=== PATIENT | male | born 1975 | race Native Hawaiian/Other Pacific Islander ===

== ENCOUNTER 2017-01-19 16:47 | Observation (INO) | payer OTHER ==
[2017-01-19 16:47] VITALS: BMI 28.1
[2017-01-19] MEDS ORDERED: Nitroglycerin 2% Ointment Foilpak UD TOP STA (17:23)
--- NOTE | 2017-01-19 17:47 | ED PDOC ---
HPI: Chest Pain History Per: Patient History/Exam Limitations: no limitations <Collins Rodríguez - Last Filed: 01/19/17 19:12> <Radha Pierre - Last Filed: 01/19/17 20:45> Chief Complaint (Nursing): Chest Pain Additional Complaint(s): 41 y/o M with a PMHx of HTN and DM 2 c/o chest pain that began last night. Pain is described as sharp, pressure-like, left-sided, intermittent, radiates to left arm and left back. Pt reports pain has been constant since 2 hours ago. Pt was diagnosed with HTN and DM 2 10 months ago. Pt denies fever, SOB, abdominal pain, ill contacts, N/V, rash or peripheral edema. Allergies: Penicillins Medications: Lisinopril and Metformin. PMHx: DM 2 and HTN PSHx: denied. FHx: Father had an open-heart surgery at age 50. SHx: No smoking, alcohol or rec. drugs. (Collins Rodríguez) Supervising Attending Note <Collins Rodríguez - Last Filed: 01/19/17 19:12> - Supervising Attending Note The Documented history was done by the: Physician Biomedical Engineer, Attending Physician The documented physical exam was done by the: Physician Biomedical Engineer, Attending Physician - Attestation: I have personally seen and examined this patient.: Yes I have fully participated in the care of the patient.: Yes I have reviewed all pertinent clinical information: Yes <Radha Pierre - Last Filed: 01/19/17 20:45> - Notes: Notes:: Anginal chest pain with h/o cardiac risk factors. Unremarkable physical exam. Needs hospitalization for serial troponin, rule out ACS. (Radha Pierre) Past Medical History - Medical History PMH: Diabetes, HTN - Surgical History Surgical History: No Surg Hx - Family History Family History: States: [place] - Social History Current smoker - smoking cessation education provided: No Ex-Smoker (has not smoked in the last 12 months): No Alcohol: None Drugs: Denies <Collins Rodríguez - Last Filed: 01/19/17 19:12> <Radha Pierre - Last Filed: 01/19/17 20:45> Vital Signs: Last Vital Signs Temp 98.0 F 01/19/17 18:16 Pulse 78 01/19/17 18:22 Resp 18 01/19/17 18:16 BP 134/80 01/19/17 18:22 Pulse Ox 99 01/19/17 19:13 - Home Medications Home Medications: Ambulatory Orders Medication Instructions Recorded Fluticasone Propionate [Flonase] 2 spr ROBERT DAILY #1 bottle 08/02/15 Lisinopril [Zestril] 5 mg PO DAILY 02/25/16 metFORMIN [glucOPHAGE] 500 mg PO DAILY 02/25/16 oxyCODONE/Acetaminophen [Percocet 5 - 325 mg PO Q4 PRN 02/25/16 5/325 mg Tab] - Allergies Allergies/Adverse Reactions: Allergies Allergy/AdvReac Type Severity Reaction Status Date / Time Penicillins Allergy unknown Verified 01/19/17 16:53 JJ Risk Score for UA/NSTEMI - JJ Risk Score Age > 64: NO 3 or more CAD Risk Factors: YES Known CAD (Stenosis greater than 50%): NO Aspirin use in past 7 days: NO Severe Angina: NO EKG ST changes greater than 0.5mm: NO JJ Score: 1 Risk %: 5% <Collins Rodríguez - Last Filed: 01/19/17 19:12> Curb-65 Severity Score - CURB-65 Severity Score Confusion: No Bun >19mg/dl (>7mmol/L): No Respiratory Rate greater than/equal to 30: No Systolic BP <90 or Diastolic BP less than/equal 60mmHg: No Age >64: No Curb-65 Score: 0 Percentage 30-day mortality: 0.6% <Collins Rodríguez - Last Filed: 01/19/17 19:12> Wells Criteria for PE - Wells Criteria for Pulmonary Embolism Clinical Signs and Symptoms of DVT: No P.E is #1 Diagnosis, or Equally Likely: No Heart Rate >100: No Immobilization at least 3 days;Surgery previous 4 weeks: No Previous, objectively diagnosed PE or DVT: No Hemoptysis: No Malignancy w/treatment within 6 months, or palliative: No Total Score: 0 <Collins Rodríguez - Last Filed: 01/19/17 19:12> Review of Systems Constitutional: Negative for: Fever, Chills ENT: Negative for: Nose Congestion, Throat Pain Cardiovascular: Positive for: Chest Pain. Negative for: Palpitations, Orthopnea Respiratory: Negative for: Cough, Shortness of Breath Gastrointestinal: Negative for: Nausea, Vomiting, Abdominal Pain Neurological: Negative for: Weakness, Numbness, Confusion <Collins Rodríguez - Last Filed: 01/19/17 19:12> Physical Exam - Reviewed Vital Signs Reviewed: Yes - Physical Exam Appears: Positive for: Well, Uncomfortable Head Exam: Positive for: ATRAUMATIC, NORMAL INSPECTION Skin: Positive for: Normal Color, Warm Eye Exam: Positive for: EOMI, PERRL ENT: Positive for: Normal ENT Inspection Neck: Positive for: Normal, Supple Cardiovascular/Chest: Positive for: Regular Rate, Rhythm Respiratory: Positive for: Normal Breath Sounds Gastrointestinal/Abdominal: Positive for: Normal Exam. Negative for: Bowel Sounds, Soft, Tenderness Neurologic/Psych: Positive for: Alert, Oriented <Collins Rodríguez - Last Filed: 01/19/17 19:12> - Laboratory Results Result Diagrams: 01/19/17 18:18 01/19/17 18:18 - ECG O2 Sat by Pulse Oximetry: 99 <Collins Rodríguez - Last Filed: 01/19/17 19:12> - Laboratory Results Result Diagrams: 01/19/17 18:18 01/19/17 18:18 <Radha Pierre - Last Filed: 01/19/17 20:45> Medical Decision Making <Collins Rodríguez - Last Filed: 01/19/17 19:12> <Radha Pierre - Last Filed: 01/19/17 20:45> Medical Decision Makin41 y/o M with a PMHx of DM 2 and HTN, father had open heart surgery at age 50, presenting with chest pain. Plan: --EKG --Chest X ray --CBC --CMP --Troponin --PT --PTT --Magnesium serum level --Phosphorus serum level --Urine drug screen --Urinalysis --Aspirin --Nitroglycerin 19:05 Pt reports mild improvement. Bloodwork unremarkable. Will transfer of care to Dr Pierre. (Collins Rodríguez) Disposition - Patient ED Disposition Is Patient to be Admitted: Transfer of Care - Disposition Disposition: Transfer of Care Disposition Time: 19:13 <Collins Rodríguez - Last Filed: 01/19/17 19:12> Discussed With DrDavide: Mirtha Davenport Doctor Will See Patient In The: ED Counseled Patient/Family Regarding: Studies Performed, Diagnosis - Pt Status Changed To: Hospital Disposition Of: Observation - POA Present On Arrival: None <Radha Pierre - Last Filed: 01/19/17 20:45> - Clinical Impression Clinical Impression: Chest pain - Disposition Condition: FAIR Forms: [facility] (Mauritanian)
[2017-01-19] MEDS ORDERED: Nitroglycerin 2% Ointment Foilpak UD TOP ONE (18:22)
[2017-01-19 18:24] LABS: BASO # 0.1 K/uL (0.0-0.2); BASO % 0.6 % (0.0-2.0); EOS # 0.2 K/uL (0.0-0.7); EOS % 2.9 % (0.0-4.0); HEMATOCRIT 41.2 % (35.0-51.0); LYMPH # 2.4 K/uL (1.0-4.3); LYMPH % 28.5 % (20.0-40.0); MEAN CELL VOLUME 86.4 fl (80.0-94.0); MEAN CORPUSCULAR HEMOGLOBIN 29.8 pg (27.0-31.0); MEAN CORPUSCULAR HGB CONC 34.5 g/dL (33.0-37.0); MEAN PLATELET VOLUME 9.2 fl (7.2-11.7); MONO # 0.7 K/uL (0.0-0.8); MONO % 8.1 % (0.0-10.0); NEUT # 5.1 K/uL (1.8-7.0); NEUT % 59.9 % (50.0-75.0); RED CELL DISTRIBUTION WIDTH 13.9 % (11.5-14.5); WHITE BLOOD COUNT 8.5 K/uL (4.8-10.8)
[2017-01-19 18:37] LABS: ALB/GLOB RATIO 1.3 (1.0-2.1); ALKALINE PHOSPHATASE 96 U/L (38-126); ALT/SGPT 61 U/L (21-72); AST/SGOT 31 U/L (17-59); BILIRUBIN,TOTAL 0.3 mg/dl (0.2-1.3); BLOOD UREA NITROGEN 13 mg/dl (9-20); CALCIUM 9.5 mg/dL (8.4-10.2); CARBON DIOXIDE 28 mmol/L (22-30); CHLORIDE 101 mmol/L (98-107); GFR AFRICAN-AMERICAN > 60; GLUCOSE,RANDOM 87 mg/dL (75-110); MAGNESIUM 1.7 MG/DL (1.6-2.3); PHOSPHOROUS 3.7 mg/dl (2.5-4.5); POTASSIUM 3.8 MMOL/L (3.6-5.0); SODIUM 140 mmol/l (132-148); TOTAL PROTEIN 8.5 G/DL (6.3-8.2)
[2017-01-19 18:46] LABS: RBC URINE 1 /hpf (0-3); URINE BACTERIA RARE (<OCC); URINE BILIRUBIN NEGATIVE (NEGATIVE); URINE BLOOD NEGATIVE (NEGATIVE); URINE COLOR YELLOW (YELLOW); URINE GLUCOSE (UA) NEG (Normal); URINE KETONE NEGATIVE (NEGATIVE); URINE LEUKOCYTE ESTERASE NEG Leu/uL (Negative); URINE PROTEIN NEGATIVE (NEGATIVE); URINE UROBILINOGEN 0.2-1.0 mg/dL (0.2-1.0); WBC URINE < 1 /hpf (0-5)
[2017-01-19 19:15] LABS: PARTIAL THROMBOPLASTIN TIME 32.7 Seconds (25.6-37.1)
--- NOTE | 2017-01-19 20:12 | CP.PCM.HP ---
History of Present Illness - History of Present Illness History of Present Illness: 41yo M with PMHx DM and HTN admitted for chest pain. chest pain x2 days, started while sleeping, currently 6/10, reproducible, sharp, pressure-like, left -sided, intermittent, radiates to left arm and left back, worse today after eating lunch. Able to walk >10 block and/or 2 flights of stairs with no chest pain. Denies fever, chills, n/v, H/A, dizziness, lightheadedness, SOB, cough, WING, abdominal pain, dysuria, hematuria, recent illness, reflux. FHx with significant cardiac hx, father with CAD Allergies: Penicillins Medications: Lisinopril and Metformin. checked in [facility] PMHx: DM and HTN PSHx: NC FHx: Father had an open-heart surgery at age 50. SHx: Denies smoking, EtOH, drugs PCP: [facility] ED course: CBC, CMP, PT/PTT troponin neg EKG CXR ASA 162mg PO x1 nitro 0.5mg SL x1 Present on Admission - Present on Admission Any Indicators Present on Admission: No Review of Systems - Review of Systems All systems: reviewed and no additional remarkable complaints except - Cardiovascular Cardiovascular: Chest Pain Past Patient History - Past Medical History & Family History Past Medical History?: Yes - Past Social History Alcohol: None Drugs: Denies - CARDIAC Hx Hypertension: Yes - PULMONARY Hx Respiratory Disorders: No - NEUROLOGICAL Hx Neurological Disorder: No - HEENT Hx HEENT Problems: Yes - ENDOCRINE/METABOLIC Hx Endocrine Disorders: Yes Hx Diabetes Mellitus Type 2: Yes - HEMATOLOGICAL/ONCOLOGICAL Hx Blood Disorders: No - INTEGUMENTARY Hx Dermatological Problems: No - MUSCULOSKELETAL/RHEUMATOLOGICAL Hx Musculoskeletal Disorders: No - GASTROINTESTINAL Hx Gastrointestinal Disorders: No - GENITOURINARY/GYNECOLOGICAL Hx Genitourinary Disorders: No - PSYCHIATRIC Hx Psychophysiologic Disorder: No Hx Substance Use: No - SURGICAL HISTORY Hx Surgeries: Yes Hx Musculoskeletal Surgery: Yes (RIGHT ANKLE) Other/Comment: right leg - ANESTHESIA Hx Anesthesia: Yes Hx Anesthesia Reactions: No Hx Malignant Hyperthermia: No Meds Allergies/Adverse Reactions: Allergies Allergy/AdvReac Type Severity Reaction Status Date / Time Penicillins Allergy unknown Verified 01/19/17 16:53 Physical Exam - Constitutional Appears: Non-toxic, No Acute Distress - Head Exam Head Exam: ATRAUMATIC, NORMAL INSPECTION - Eye Exam Eye Exam: Normal appearance - ENT Exam ENT Exam: Mucous Membranes Moist - Neck Exam Neck exam: Positive for: Full Rom, Normal Inspection - Respiratory Exam Respiratory Exam: Clear to Auscultation Bilateral, NORMAL BREATHING PATTERN - Cardiovascular Exam Cardiovascular Exam: REGULAR RHYTHM. absent: Systolic Murmur Additional comments: tender to palpation along left chest wall along lateral ribs - GI/Abdominal Exam GI & Abdominal Exam: Normal Bowel Sounds, Soft. absent: Tenderness - Extremities Exam Extremities exam: Positive for: normal inspection. Negative for: pedal edema - Back Exam Back exam: NORMAL INSPECTION. absent: vertebral tenderness - Neurological Exam Neurological exam: Alert, Oriented x3 - Skin Skin Exam: Dry, Warm Results - Vital Signs Recent Vital Signs: Last Vital Signs Temp 98.0 F 01/19/17 18:16 Pulse 78 01/19/17 18:22 Resp 18 01/19/17 18:16 BP 134/80 01/19/17 18:22 Pulse Ox 99 01/19/17 19:13 - Labs Result Diagrams: 01/19/17 18:18 01/19/17 18:18 Labs: Laboratory Results - last 24 hr 01/19/17 01/19/17 01/19/17 18:18 18:18 18:18 WBC 8.5 RBC 4.76 Hgb 14.2 Hct 41.2 MCV 86.4 D MCH 29.8 MCHC 34.5 RDW 13.9 Plt Count 161 MPV 9.2 Neut % (Auto) 59.9 Lymph % (Auto) 28.5 [place] % (Auto) 8.1 Eos % (Auto) 2.9 Baso % (Auto) 0.6 Neut # 5.1 Lymph # 2.4 [place] # 0.7 Eos # 0.2 Baso # 0.1 PT INR APTT Sodium 140 Potassium 3.8 Chloride 101 Carbon Dioxide 28 Anion Gap 15 BUN 13 Creatinine 0.7 L Est GFR ( Amer) > 60 Est GFR (Non-Af Amer) > 60 Random Glucose 87 Calcium 9.5 Phosphorus 3.7 Magnesium 1.7 Total Bilirubin 0.3 AST 31 ALT 61 Alkaline Phosphatase 96 Troponin I < 0.0120 Total Protein 8.5 H Albumin 4.7 Globulin 3.7 Albumin/Globulin Ratio 1.3 Urine Color Urine Clarity Urine pH Ur Specific [place] Urine Protein Urine Glucose (UA) Urine Ketones Urine Blood Urine Nitrate Urine Bilirubin Urine Urobilinogen Ur Leukocyte Esterase Urine RBC (Auto) Urine Microscopic WBC Amorphous Sediment Urine Bacteria Urine Opiates Screen Negative Urine Methadone Screen Negative Ur Barbiturates Screen Negative Ur Phencyclidine Scrn Negative Ur Amphetamines Screen Negative U Benzodiazepines Scrn Negative U Oth Cocaine Metabols Negative U Cannabinoids Screen Negative 01/19/17 01/19/17 18:18 18:18 WBC RBC Hgb Hct MCV MCH MCHC RDW Plt Count MPV Neut % (Auto) Lymph % (Auto) [place] % (Auto) Eos % (Auto) Baso % (Auto) Neut # Lymph # [place] # Eos # Baso # PT 10.5 INR 0.9 APTT 32.7 Sodium Potassium Chloride Carbon Dioxide Anion Gap BUN Creatinine Est GFR ( Amer) Est GFR (Non-Af Amer) Random Glucose Calcium Phosphorus Magnesium Total Bilirubin AST ALT Alkaline Phosphatase Troponin I Total Protein Albumin Globulin Albumin/Globulin Ratio Urine Color Yellow Urine Clarity Slighty-cloudy Urine pH 8.0 Ur Specific [place] 1.010 Urine Protein Negative Urine Glucose (UA) Neg Urine Ketones Negative Urine Blood Negative Urine Nitrate Negative Urine Bilirubin Negative Urine Urobilinogen 0.2-1.0 Ur Leukocyte Esterase Neg Urine RBC (Auto) 1 Urine Microscopic WBC < 1 Amorphous Sediment Rare H Urine Bacteria Rare Urine Opiates Screen Urine Methadone Screen Ur Barbiturates Screen Ur Phencyclidine Scrn Ur Amphetamines Screen U Benzodiazepines Scrn U Oth Cocaine Metabols U Cannabinoids Screen Assessment & Plan - Assessment and Plan (Free Text) Assessment: 41yo M with PMHx DM and HTN admitted for chest pain. Chest pain -r/o ACS, may represent costochondritis, reflux -trend troponins -pain control, nitro SL -O2 prn -ASA -Lipid panel -omeprazole HTN -c/w home med DM -held metformin -accuchecks -SSI DVT ppx -SCDs, ambulating Decision To Admit - Pt Status Changed To: Hospital Disposition Of: Observation - . Bed Request Type: Telemetry Admitting Physician: Yris Lucio
[2017-01-19] MEDS ORDERED: Glucagon Recombinant 1 mg Inj IM PRN (20:18)
[2017-01-19] MEDS ORDERED: Dextrose 50% SYRINGE Inj (50 ml) IV PRN (20:18)
[2017-01-19] MEDS: Insulin Regular 100 units/ml SC SCH (22:40)
[2017-01-19 23:56] VITALS: RESP 18
[2017-01-20] MEDS ORDERED: Influenza Vaccine 18yr & older 0.5 ML/45 MCG SYR IM ONE (06:00)
[2017-01-20] MEDS ORDERED: Pneumococcal 23-Valent Vaccine IM ONE (06:00)
[2017-01-20 06:03] LABS: BLOOD UREA NITROGEN 13 mg/dl (9-20); CALCIUM 8.8 mg/dL (8.4-10.2); CARBON DIOXIDE 26 mmol/L (22-30); CHLORIDE 105 mmol/L (98-107); CHOLESTEROL 179 mg/dL (0-199); GFR AFRICAN-AMERICAN > 60; GLUCOSE,RANDOM 107 mg/dL (75-110); MAGNESIUM 1.8 MG/DL (1.6-2.3); POTASSIUM 4.3 MMOL/L (3.6-5.0); SODIUM 142 mmol/l (132-148)
[2017-01-20 07:24] LABS: THYROID STIMULATING HORMONE 1.07 mIU/ML (0.46-4.68)
--- NOTE | 2017-01-20 07:31 | RAD ---
HISTORY: chest pain COMPARISON: 01/30/2016 TECHNIQUE: Chest PA and lateral FINDINGS: LUNGS: No active pulmonary disease. PLEURA: No significant pleural effusion identified. No pneumothorax apparent. CARDIOVASCULAR: No radiographic findings to suggest acute or significant cardiovascular disease. OSSEOUS STRUCTURES: No significant abnormalities. VISUALIZED UPPER ABDOMEN: Normal. OTHER FINDINGS: None. IMPRESSION: No active disease. No significant interval change compared to the prior examination(s). Please note: No preliminary interpretation of this examination rendered by emergency department personnel (Physician and/or PA declined to provide preliminary report of their findings/ observations).
[2017-01-20] MEDS: Insulin Regular 100 units/ml SC SCH ×2 (08:30→11:50)
--- NOTE | 2017-01-20 11:00 | CP.PCM.DIS ---
Provider - Provider Date of Admission: 01/19/17 20:05 Attending physician: Yris Lucio MD Primary care physician: [facility] Time Spent in preparation of Discharge (in minutes): 35 Diagnosis - Discharge Diagnosis (1) Chest pain Status: Acute Comment: Resolved. Still reproducible to palpation. EKG x2 and Troponin x3 normal. Patient DC on NSAIDs Hospital Course - Lab Results Lab Results: Most Recent Lab Values WBC 8.5 K/uL (4.8-10.8) 01/19/17 18:18 RBC 4.76 Mil/uL (4.40-5.90) 01/19/17 18:18 Hgb 14.2 g/dL (12.0-18.0) 01/19/17 18:18 Hct 41.2 % (35.0-51.0) 01/19/17 18:18 MCV 86.4 fl (80.0-94.0) D 01/19/17 18:18 MCH 29.8 pg (27.0-31.0) 01/19/17 18:18 MCHC 34.5 g/dL (33.0-37.0) 01/19/17 18:18 RDW 13.9 % (11.5-14.5) 01/19/17 18:18 Plt Count 161 K/uL (130-400) 01/19/17 18:18 MPV 9.2 fl (7.2-11.7) 01/19/17 18:18 Neut % (Auto) 59.9 % (50.0-75.0) 01/19/17 18:18 Lymph % (Auto) 28.5 % (20.0-40.0) 01/19/17 18:18 [place] % (Auto) 8.1 % (0.0-10.0) 01/19/17 18:18 Eos % (Auto) 2.9 % (0.0-4.0) 01/19/17 18:18 Baso % (Auto) 0.6 % (0.0-2.0) 01/19/17 18:18 Neut # 5.1 K/uL (1.8-7.0) 01/19/17 18:18 Lymph # 2.4 K/uL (1.0-4.3) 01/19/17 18:18 [place] # 0.7 K/uL (0.0-0.8) 01/19/17 18:18 Eos # 0.2 K/uL (0.0-0.7) 01/19/17 18:18 Baso # 0.1 K/uL (0.0-0.2) 01/19/17 18:18 PT 10.5 Seconds (9.8-13.1) 01/19/17 18:18 INR 0.9 (0.9-1.2) 01/19/17 18:18 APTT 32.7 Seconds (25.6-37.1) 01/19/17 18:18 Sodium 142 mmol/l (132-148) 01/20/17 05:00 Potassium 4.3 MMOL/L (3.6-5.0) 01/20/17 05:00 Chloride 105 mmol/L (98-107) 01/20/17 05:00 Carbon Dioxide 26 mmol/L (22-30) 01/20/17 05:00 Anion Gap 15 (10-20) 01/20/17 05:00 BUN 13 mg/dl (9-20) 01/20/17 05:00 Creatinine 0.8 mg/dL (0.8-1.5) 01/20/17 05:00 Est GFR ( Amer) > 60 01/20/17 05:00 Est GFR (Non-Af Amer) > 60 01/20/17 05:00 POC Glucose (mg/dL) 83 mg/dL (65-110) 01/20/17 05:45 Random Glucose 107 mg/dL (75-110) 01/20/17 05:00 Calcium 8.8 mg/dL (8.4-10.2) 01/20/17 05:00 Phosphorus 4.0 mg/dl (2.5-4.5) 01/20/17 05:00 Magnesium 1.8 MG/DL (1.6-2.3) 01/20/17 05:00 Total Bilirubin 0.3 mg/dl (0.2-1.3) 01/19/17 18:18 AST 31 U/L (17-59) 01/19/17 18:18 ALT 61 U/L (21-72) 01/19/17 18:18 Alkaline Phosphatase 96 U/L (38-126) 01/19/17 18:18 Troponin I < 0.0120 ng/mL (0.00-0.120) 01/20/17 01:24 Total Protein 8.5 G/DL (6.3-8.2) H 01/19/17 18:18 Albumin 4.7 g/dL (3.5-5.0) 01/19/17 18:18 Globulin 3.7 gm/dL (2.2-3.9) 01/19/17 18:18 Albumin/Globulin Ratio 1.3 (1.0-2.1) 01/19/17 18:18 Triglycerides 258 mg/DL (0-149) H 01/20/17 05:00 Cholesterol 179 mg/dL (0-199) 01/20/17 05:00 LDL Cholesterol Direct 116 mg/dL (0-129) 01/20/17 05:00 HDL Cholesterol 28 MG/DL (30-70) L 01/20/17 05:00 TSH 3rd Generation 1.07 mIU/ML (0.46-4.68) 01/20/17 05:00 Urine Color Yellow (YELLOW) 01/19/17 18:18 Urine Clarity Slighty-cloudy (Clear) 01/19/17 18:18 Urine pH 8.0 (5.0-8.0) 01/19/17 18:18 Ur Specific [place] 1.010 (1.003-1.030) 01/19/17 18:18 Urine Protein Negative mg/dL (NEGATIVE) 01/19/17 18:18 Urine Glucose (UA) Neg mg/dL (Normal) 01/19/17 18:18 Urine Ketones Negative mg/dL (NEGATIVE) 01/19/17 18:18 Urine Blood Negative (NEGATIVE) 01/19/17 18:18 Urine Nitrate Negative (NEGATIVE) 01/19/17 18:18 Urine Bilirubin Negative (NEGATIVE) 01/19/17 18:18 Urine Urobilinogen 0.2-1.0 mg/dL (0.2-1.0) 01/19/17 18:18 Ur Leukocyte Esterase Neg [place]/uL (Negative) 01/19/17 18:18 Urine RBC (Auto) 1 /hpf (0-3) 01/19/17 18:18 Urine Microscopic WBC < 1 /hpf (0-5) 01/19/17 18:18 Amorphous Sediment Rare /ul (<OCC) H 01/19/17 18:18 Urine Bacteria Rare (<OCC) 01/19/17 18:18 Urine Opiates Screen Negative (NEGATIVE) 01/19/17 18:18 Urine Methadone Screen Negative (NEGATIVE) 01/19/17 18:18 Ur Barbiturates Screen Negative (NEGATIVE) 01/19/17 18:18 Ur Phencyclidine Scrn Negative (NEGATIVE) 01/19/17 18:18 Ur Amphetamines Screen Negative (NEGATIVE) 01/19/17 18:18 U Benzodiazepines Scrn Negative (NEGATIVE) 01/19/17 18:18 U Oth Cocaine Metabols Negative (NEGATIVE) 01/19/17 18:18 U Cannabinoids Screen Negative (NEGATIVE) 01/19/17 18:18 - Hospital Course Hospital Course: 41 y/o M with PMHx of DM and HTN presented to ED yesterday c/o CP for 2 days. He was admitted to rule out ACS and today after pain is resolved, EKG x 2 and Troponin x 3 all neg patient is being discharged home with NSAIDs for possible costochondritis and f/u as outpatient. Discharge meds: Aleve 220 mg PRN for CP Metformin 500mg BID Lisinopril 5 mg daily. Discharge Exam - Head Exam Head Exam: ATRAUMATIC, NORMAL INSPECTION - Eye Exam Eye Exam: EOMI, PERRL - ENT Exam ENT Exam: Mucous Membranes Moist - Respiratory Exam Respiratory Exam: Clear to PA & Lateral, NORMAL BREATHING PATTERN - Cardiovascular Exam Cardiovascular Exam: REGULAR RHYTHM, +S1, +S2 - GI/Abdominal Exam GI & Abdominal Exam: Normal Bowel Sounds, Unremarkable - Extremities Exam Extremities exam: full ROM, normal capillary refill - Neurological Exam Neurological exam: Alert, CN II-XII Intact, Normal Gait, Oriented x3 - Psychiatric Exam Psychiatric exam: Normal Affect, Normal Mood - Skin Skin Exam: Intact, Normal Color, Warm Discharge Plan - Discharge Medications Prescriptions: Naproxen Sodium [Aleve] 220 mg PO PRN PRN #20 tablet PRN Reason: Pain, Mild (1-3) - Follow Up Plan Condition: FAIR Disposition: HOME/ ROUTINE Patient education suggested?: Yes Instructions: Chest Pain (DC) Referrals: [facility] [place] [Outside]
[2017-01-20 12:26] VITALS: BP 125/75; PULSE 71; TEMP 97.5; O2SAT 100
--- NOTE | 2017-01-20 12:46 | CARD ---
APPROVED REPORT EKG Measurement Heart [id number] <Conclusion> Normal sinus rhythm Normal ECG
--- NOTE | 2017-01-20 12:55 | CARD ---
APPROVED REPORT EKG Measurement Heart [id number] <Conclusion> Normal sinus rhythm Normal ECG
[2017-01-21 01:53] LABS: CREATININE RANDOM URINE 62 mg/dL (20-370); MICROALBUMIN <0.2 mg/dL
== END 2017-01-20 14:30 | disposition home or self-care (01) ==
LOC: H.ER 16:47 → H.ERHOLD 20:05 → H.TEL 21:24
PROVIDERS: ADMIT Family Medicine Geriatric Medicine; ATTEND Family Medicine Geriatric Medicine
DX: R07.9 Chest pain, unspecified (principal); I10 Essential (primary) hypertension; E11.9 Type 2 diabetes mellitus without complications; Z88.0 Allergy status to penicillin; Z23 Encounter for immunization
CPT/HCPCS: 36415; 71020; 80048; 80053; 80061; 80324; 80345; 80346; 80349; 80353; 80358; 80361; 81003; 82043; 82570; 82948; 83036; 83735; 83992; 84100; 84443; 84484; 85025; 85610; 85730; 87389; 90471; 90732; 93005; 99285; G0378; Q2035